=== PATIENT | female | born 1945 | race Caucasian/White ===

== ENCOUNTER 2021-12-18 02:49 | Inpatient (IN) ==
[2021-12-18] MEDS ORDERED: SODIUM CHLORIDE 0.9% 1,000 ML IV STA ×2 (03:08→04:51)
[2021-12-18 03:42] LABS: Basophils # 0.1 10*3/uL (0.0-0.2); Basophils % 0.3 % (0.0-0.8); Eosinophils # 0.1 10*3/uL (0.0-0.87); Eosinophils % 0.4 % (0.00-10.9); Hematocrit 47.2 VOL% (35.7-47.0); Immature Granulocytes % 0.8 %; Immature Granulocytes Absolute 0.19 #; Lymphocytes # 1.9 10*3/uL (1.4-4.0); Lymphocytes % 8.1 % (21.3-54.2); Mean Corpuscular HGB Conc 31.8 GM/DL (32-36); Mean Corpuscular Volume 101.7 FL (87-102); Monocytes % 4.4 % (1.7-12.7); Platelet Count 158 T/CUMM (130-400); Red Blood Count 4.64 MC/CUMM (3.8-5.5); Red Cell Distribution Width 13.2 % (9.3-17.3); White Blood Count 23.1 T/CUMM (4-12)
[2021-12-18 04:08] LABS: INR 0.9; PT Patient Result 10.6 SECS (10.5-12.0); Partial Thromboplastin Time 38.7 SECS (23.8-32.1)
[2021-12-18 04:15] LABS: Reactive Lymphocytes 1+
[2021-12-18 04:16] LABS: Ovalocytes 1+; Platelet Estimate Normal
[2021-12-18 06:28] LABS: Hyaline Casts,Urine 10 /LPF (0-3); Mucus,Urine Occasional /LPF (Occasional)
[2021-12-18 06:30] LABS: Glucose,Urine (UA) Negative (Negative); Ketones,Urine Negative (Negative); Nitrite,Urine Negative (Negative); Protein,Urine Negative (Negative); Urine Appearance Clear (Clear); Urine Color Yellow (Yellow); Urine Specific Gravity 1.015 (1.001-1.035); Urine pH 5.5 (4.5-8.0)
[2021-12-18 06:31] LABS: Bilirubin,Urine Negative (Negative); Blood, Urine Negative (Negative); Urine Urobilinogen 0.2 eU/dL (<2.0)
[2021-12-18] MEDS ORDERED: SODIUM CHLORIDE 0.9% 1,000 ML IV PRN (06:32)
[2021-12-18 07:09] LABS: Alanine Aminotransferase 25 U/L (13-56); Albumin 2.8 G/DL (3.4-5.0); Alkaline Phosphatase 166 U/L (45-117); Aspartate Amino Transferase 33 U/L (0-37); Bilirubin,Total < 0.39 MG/DL (0.20-1.00); Blood Urea Nitrogen 27 MG/DL (7-18); Calcium 8.4 MG/DL (8.5-10.1); Carbon Dioxide 22 MMOL/L (21-32); Chloride 108 MMOL/L (98-107); Estimated Glom Filtration Rate 32 ML/MIN; Glucose 118 MG/DL (74-106); Osmolality,Calculated 273.2 MOS/KG (273-304); Potassium 5.4 MMOL/L (3.5-5.1); Sodium 134 MMOL/L (136-145)
[2021-12-18 07:42] LABS: Hematocrit 37.8 VOL% (35.7-47.0); Hemoglobin 11.9 GM/DL (12.0-16.0)
[2021-12-18] MEDS ORDERED: ACETAMINOPHEN 325 MG TABLET PO PRN (08:45)
[2021-12-18] MEDS ORDERED: GLUCAGON 1 MG VIAL IM PRN (08:45)
[2021-12-18] MEDS ORDERED: DEXTROSE 10% 250 ML BAG IV PRN (09:02)
[2021-12-18] MEDS ORDERED: SERTRALINE 25 MG TABLET ONE (09:13)
[2021-12-18] MEDS: amLODIPine 10 MG TABLET PO SCH (09:26)
[2021-12-18] MEDS: SODIUM CHLORIDE 0.9% 1,000 ML IV SCH ×2 (09:26→17:45)
[2021-12-18] MEDS: busPIRone 15 MG TABLET PO SCH ×2 (09:26→20:22)
[2021-12-18] MEDS: METHOCARBAMOL 500 MG TABLET PO SCH ×3 (09:27→20:22)
[2021-12-18] MEDS: SERTRALINE 100 MG TABLET PO SCH (09:27)
[2021-12-18 09:47] LABS: Hematocrit 39.2 VOL% (35.7-47.0); Hemoglobin 12.7 GM/DL (12.0-16.0)
[2021-12-18] MEDS: PANTOPRAZOLE INJ 200 MG in SODIUM CHLORIDE 0.9% 250 ML IV SCH (10:07)
[2021-12-18] MEDS: buPROPion SR 150 MG TABLET PO SCH (10:07)
[2021-12-18] MEDS: CIPROFLOXACIN INJ 400 MG/200 ML PREMIX IV SCH ×2 (11:49→23:02)
[2021-12-18] MEDS: metroNIDAZOLE INJ 500 MG/100 ML PREMIX IV SCH (12:54)
[2021-12-18] MEDS: SODIUM ZIRCONIUM CYCLOSILICATE 10 GM PACK PO SCH ×2 (14:58→20:21)
[2021-12-18 15:26] LABS: Hematocrit 36.8 VOL% (35.7-47.0); Hemoglobin 11.9 GM/DL (12.0-16.0)
[2021-12-18] MEDS ORDERED: TEMAZEPAM 15 MG CAPSULE PO PRN (19:52)
[2021-12-18] MEDS: SIMVASTATIN 40 MG TABLET PO SCH (20:22)
[2021-12-18] MEDS ORDERED: rOPINIRole 1 MG TABLET PO SCH (21:00)
[2021-12-18 21:20] LABS: Hematocrit 34.5 VOL% (35.7-47.0); Hemoglobin 11.2 GM/DL (12.0-16.0)
[2021-12-19] MEDS: metroNIDAZOLE INJ 500 MG/100 ML PREMIX IV SCH ×2 (00:40→13:19)
[2021-12-19] MEDS: SODIUM CHLORIDE 0.9% 1,000 ML IV SCH ×4 (02:06→21:40)
[2021-12-19 05:39] LABS: Basophils % 0.2 % (0.0-0.8); Eosinophils % 0.1 % (0.00-10.9); Hematocrit 32.9 VOL% (35.7-47.0); Hemoglobin 10.7 GM/DL (12.0-16.0); Immature Granulocytes % 0.3 %; Immature Granulocytes Absolute 0.03 #; Lymphocytes # 0.7 10*3/uL (1.4-4.0); Lymphocytes % 7.1 % (21.3-54.2); Mean Corpuscular HGB Conc 32.5 GM/DL (32-36); Mean Corpuscular Volume 99.4 FL (87-102); Mean Platelet Volume 10.1 FL (9.6-12.0); Monocytes # 0.5 10*3/uL (0.11-0.8); Monocytes % 5.2 % (1.7-12.7); Neutrophils % 87.1 % (38.7-73.9); Red Cell Distribution Width 13.2 % (9.3-17.3)
[2021-12-19 05:47] LABS: Platelet Count 126 T/CUMM (130-400); Red Blood Count 3.31 MC/CUMM (3.8-5.5); White Blood Count 9.6 T/CUMM (4-12)
[2021-12-19 05:58] LABS: Calcium 8.2 MG/DL (8.5-10.1); Osmolality,Calculated 267.2 MOS/KG (273-304); Potassium 4.2 MMOL/L (3.5-5.1); Risk Ratio 3.07; Thyroid Stimulating Hormone 0.407 uIU/ml (0.358-3.74); VLDL Cholesterol 21.6 MG/DL
[2021-12-19] MEDS: LEVOTHYROXINE 50 MCG TABLET PO SCH (06:10)
[2021-12-19] MEDS ORDERED: lisinopriL 20 MG TABLET PO SCH (09:00)
[2021-12-19] MEDS: METHOCARBAMOL 500 MG TABLET PO SCH ×3 (09:43→20:28)
[2021-12-19] MEDS: buPROPion SR 150 MG TABLET PO SCH (09:43)
[2021-12-19] MEDS: SERTRALINE 100 MG TABLET PO SCH (09:43)
[2021-12-19] MEDS: busPIRone 15 MG TABLET PO SCH ×2 (09:43→20:27)
[2021-12-19] MEDS: amLODIPine 10 MG TABLET PO SCH (09:44)
[2021-12-19] MEDS: SODIUM ZIRCONIUM CYCLOSILICATE 10 GM PACK PO SCH ×3 (09:44→21:26)
[2021-12-19] MEDS: PANTOPRAZOLE INJ 200 MG in SODIUM CHLORIDE 0.9% 250 ML IV SCH (09:45)
[2021-12-19] MEDS: CIPROFLOXACIN INJ 400 MG/200 ML PREMIX IV SCH ×2 (12:06→22:44)
[2021-12-19] MEDS ORDERED: POLYETHYLENE GLYCOL POWDER 255 GM BOTTLE PO ONE (18:00)
[2021-12-19] MEDS: traMADol 50 MG TABLET PO PRN (18:41)
[2021-12-19] MEDS: rOPINIRole 1 MG TABLET PO SCH (18:45)
[2021-12-19] MEDS: ONDANSETRON 4 MG/2 ML VIAL IV PRN (20:27)
[2021-12-19] MEDS: SIMVASTATIN 40 MG TABLET PO SCH (20:28)
[2021-12-19] MEDS: DIVALPROEX ER 250 MG TABLET PO SCH (20:28)
[2021-12-19] MEDS ORDERED: DILTIAZEM 25 MG/5 ML VIAL IV ONE (23:09)
[2021-12-19] MEDS: DILTIAZEM INJ 100 MG in SODIUM CHLORIDE 0.9% 100 ML IV SCH (23:52)
[2021-12-20] MEDS: metroNIDAZOLE INJ 500 MG/100 ML PREMIX IV SCH ×2 (02:42→12:15)
[2021-12-20] MEDS: SODIUM CHLORIDE 0.9% 1,000 ML IV SCH ×3 (02:43→20:14)
[2021-12-20] MEDS ORDERED: METOPROLOL TARTRATE 5 MG/5 ML VIAL IV ONE (03:52)
[2021-12-20] MEDS: traMADol 50 MG TABLET PO PRN (04:27)
[2021-12-20] MEDS ORDERED: POLYETHYLENE GLYCOL POWDER 255 GM BOTTLE PO ONE (05:00)
[2021-12-20 05:06] LABS: Basophils % 0.2 % (0.0-0.8); Eosinophils % 0.4 % (0.00-10.9); Hematocrit 31.1 VOL% (35.7-47.0); Hemoglobin 10.3 GM/DL (12.0-16.0); Immature Granulocytes % 0.5 %; Immature Granulocytes Absolute 0.05 #; Lymphocytes # 0.7 10*3/uL (1.4-4.0); Lymphocytes % 7.4 % (21.3-54.2); Mean Corpuscular HGB Conc 33.1 GM/DL (32-36); Mean Platelet Volume 10.1 FL (9.6-12.0); Monocytes # 0.4 10*3/uL (0.11-0.8); Monocytes % 4.2 % (1.7-12.7); Neutrophils % 87.3 % (38.7-73.9); Platelet Count 123 T/CUMM (130-400); Red Blood Count 3.14 MC/CUMM (3.8-5.5); White Blood Count 10.1 T/CUMM (4-12)
[2021-12-20 05:34] LABS: Calcium 8.3 MG/DL (8.5-10.1); Osmolality,Calculated 275.5 MOS/KG (273-304); Potassium 3.2 MMOL/L (3.5-5.1)
[2021-12-20] MEDS: POTASSIUM CHLORIDE RIDER 10 MEQ/100 ML PREMIX IV SCH ×2 (06:46→10:25)
[2021-12-20] MEDS: LEVOTHYROXINE 50 MCG TABLET PO SCH (06:46)
[2021-12-20] MEDS: DILTIAZEM INJ 100 MG in SODIUM CHLORIDE 0.9% 100 ML IV SCH (08:30)
[2021-12-20] MEDS: busPIRone 15 MG TABLET PO SCH ×2 (10:05→20:01)
[2021-12-20] MEDS: amLODIPine 10 MG TABLET PO SCH (10:05)
[2021-12-20] MEDS: SERTRALINE 100 MG TABLET PO SCH (10:05)
[2021-12-20] MEDS: METHOCARBAMOL 500 MG TABLET PO SCH ×3 (10:05→20:01)
[2021-12-20] MEDS: DIVALPROEX ER 250 MG TABLET PO SCH ×2 (10:06→20:02)
[2021-12-20] MEDS: buPROPion SR 150 MG TABLET PO SCH (10:06)
[2021-12-20] MEDS ORDERED: DILTIAZEM 60 MG TABLET PO SCH ×2 (11:00→21:00)
[2021-12-20] MEDS: ASCORBIC ACID 500 MG TABLET PO SCH ×2 (11:53→20:01)
[2021-12-20] MEDS: CIPROFLOXACIN INJ 400 MG/200 ML PREMIX IV SCH ×2 (12:14→23:00)
[2021-12-20] MEDS: PANTOPRAZOLE INJ 200 MG in SODIUM CHLORIDE 0.9% 250 ML IV SCH (14:58)
[2021-12-20] MEDS: rOPINIRole 1 MG TABLET PO SCH (17:53)
[2021-12-20] MEDS: DILTIAZEM 90 MG TABLET PO SCH (21:00)
[2021-12-21] MEDS: metroNIDAZOLE INJ 500 MG/100 ML PREMIX IV SCH ×2 (01:24→12:31)
[2021-12-21] MEDS: DILTIAZEM INJ 100 MG in SODIUM CHLORIDE 0.9% 100 ML IV SCH ×3 (01:32→23:05)
[2021-12-21] MEDS: SODIUM CHLORIDE 0.9% 1,000 ML IV SCH ×2 (01:33→16:29)
[2021-12-21 04:49] LABS: Basophils % 0.3 % (0.0-0.8); Eosinophils # 0.2 10*3/uL (0.0-0.87); Eosinophils % 1.7 % (0.00-10.9); Hematocrit 31.3 VOL% (35.7-47.0); Immature Granulocytes % 0.7 %; Immature Granulocytes Absolute 0.07 #; Lymphocytes # 0.9 10*3/uL (1.4-4.0); Lymphocytes % 9.1 % (21.3-54.2); Mean Corpuscular HGB Conc 31.9 GM/DL (32-36); Mean Corpuscular Volume 99.1 FL (87-102); Mean Platelet Volume 9.9 FL (9.6-12.0); Monocytes # 0.5 10*3/uL (0.11-0.8); Monocytes % 4.5 % (1.7-12.7); Neutrophils % 83.7 % (38.7-73.9); Platelet Count 153 T/CUMM (130-400); Red Blood Count 3.16 MC/CUMM (3.8-5.5); Red Cell Distribution Width 13.2 % (9.3-17.3); White Blood Count 10.1 T/CUMM (4-12)
[2021-12-21 04:59] LABS: PT Patient Result 11.4 SECS (10.5-12.0)
[2021-12-21] MEDS ORDERED: POLYETHYLENE GLYCOL POWDER 255 GM BOTTLE PO ONE (05:00)
[2021-12-21 05:12] LABS: Calcium 8.5 MG/DL (8.5-10.1); Osmolality,Calculated 270.8 MOS/KG (273-304); Potassium 2.8 MMOL/L (3.5-5.1)
[2021-12-21] MEDS: LEVOTHYROXINE 50 MCG TABLET PO SCH (06:26)
[2021-12-21] MEDS: POTASSIUM CHLORIDE RIDER 10 MEQ/100 ML PREMIX IV PRN ×3 (06:54→09:01)
[2021-12-21 08:58] LABS: Arterial Base Excess iSTAT 1 MMOL/L (-2.5-2.5); Arterial Bicarbonate iSTAT 24.7 MMOL/L (20-26); Arterial O2 Saturation iSTAT 92 % (95-100); Arterial PCO2 iSTAT 35 MM HG (35-48); Arterial PO2 iSTAT 59 MM HG (80-95); Arterial Total CO2 iSTAT 26 MMO/L (23-27); Arterial pH iSTAT 7.456 (7.35-7.45)
[2021-12-21] MEDS ORDERED: LACTATED RINGERS 1,000 ML IV SCH (09:00)
[2021-12-21] MEDS: METHOCARBAMOL 500 MG TABLET PO SCH ×3 (10:13→20:58)
[2021-12-21] MEDS: ASCORBIC ACID 500 MG TABLET PO SCH ×2 (10:13→20:58)
[2021-12-21] MEDS: CYCLOBENZAPRINE 10 MG TABLET PO PRN (10:13)
[2021-12-21] MEDS: DILTIAZEM 90 MG TABLET PO SCH ×3 (10:14→20:58)
[2021-12-21] MEDS: buPROPion SR 150 MG TABLET PO SCH (10:14)
[2021-12-21] MEDS: SERTRALINE 100 MG TABLET PO SCH (10:14)
[2021-12-21] MEDS: busPIRone 15 MG TABLET PO SCH ×2 (10:14→20:58)
[2021-12-21] MEDS: amLODIPine 10 MG TABLET PO SCH (10:14)
[2021-12-21] MEDS: CIPROFLOXACIN INJ 400 MG/200 ML PREMIX IV SCH (10:16)
[2021-12-21] MEDS: DIVALPROEX ER 250 MG TABLET PO SCH ×2 (10:34→20:58)
[2021-12-21] MEDS: ALBUTEROL 0.63 MG/3 ML NEB RESP TX PRN (13:35)
[2021-12-21] MEDS: cefTRIAXone 1,000 MG in SYRINGE 1 EACH IV SCH (14:38)
[2021-12-21] MEDS: DOXYCYCLINE HYCLATE INJ 100 MG in SODIUM CHLORIDE 0.9% 100 ML IV SCH (17:02)
[2021-12-21] MEDS: rOPINIRole 1 MG TABLET PO SCH (19:39)
[2021-12-21] MEDS: AMIODARONE 200 MG TABLET PO SCH (20:58)
[2021-12-21] MEDS: PANTOPRAZOLE INJ 200 MG in SODIUM CHLORIDE 0.9% 250 ML IV SCH (21:52)
[2021-12-21] MEDS: metroNIDAZOLE 500 MG TABLET PO SCH (21:58)
[2021-12-22] MEDS: DOXYCYCLINE HYCLATE INJ 100 MG in SODIUM CHLORIDE 0.9% 100 ML IV SCH ×2 (02:32→15:10)
[2021-12-22 04:59] LABS: Basophils % 0.3 % (0.0-0.8); Eosinophils # 0.1 10*3/uL (0.0-0.87); Eosinophils % 0.9 % (0.00-10.9); Hematocrit 30.9 VOL% (35.7-47.0); Hemoglobin 9.9 GM/DL (12.0-16.0); Immature Granulocytes % 0.9 %; Immature Granulocytes Absolute 0.14 #; Lymphocytes # 1.2 10*3/uL (1.4-4.0); Lymphocytes % 7.6 % (21.3-54.2); Mean Corpuscular Volume 99.4 FL (87-102); Mean Platelet Volume 9.3 FL (9.6-12.0); Monocytes # 0.9 10*3/uL (0.11-0.8); Monocytes % 5.9 % (1.7-12.7); Neutrophils % 84.4 % (38.7-73.9); Platelet Count 193 T/CUMM (130-400); Red Blood Count 3.11 MC/CUMM (3.8-5.5); Red Cell Distribution Width 13.4 % (9.3-17.3); White Blood Count 15.5 T/CUMM (4-12)
[2021-12-22 05:14] LABS: Calcium 8.4 MG/DL (8.5-10.1); Osmolality,Calculated 272.8 MOS/KG (273-304); Potassium 2.9 MMOL/L (3.5-5.1)
[2021-12-22] MEDS: LEVOTHYROXINE 50 MCG TABLET PO SCH (05:56)
[2021-12-22] MEDS: metroNIDAZOLE 500 MG TABLET PO SCH ×3 (05:56→21:01)
[2021-12-22] MEDS: POTASSIUM CHLORIDE RIDER 10 MEQ/100 ML PREMIX IV PRN ×5 (06:34→13:07)
[2021-12-22] MEDS: buPROPion SR 150 MG TABLET PO SCH (08:55)
[2021-12-22] MEDS: DILTIAZEM 90 MG TABLET PO SCH (08:56)
[2021-12-22] MEDS: busPIRone 15 MG TABLET PO SCH ×2 (08:56→21:01)
[2021-12-22] MEDS: SERTRALINE 100 MG TABLET PO SCH (08:57)
[2021-12-22] MEDS: DIVALPROEX ER 250 MG TABLET PO SCH ×2 (08:57→21:01)
[2021-12-22] MEDS: amLODIPine 10 MG TABLET PO SCH (08:58)
[2021-12-22] MEDS: ASCORBIC ACID 500 MG TABLET PO SCH ×2 (08:58→21:01)
[2021-12-22] MEDS: AMIODARONE 200 MG TABLET PO SCH ×2 (08:59→21:01)
[2021-12-22] MEDS: METHOCARBAMOL 500 MG TABLET PO SCH ×3 (09:00→21:01)
[2021-12-22] MEDS ORDERED: LACTATED RINGERS 1,000 ML IV SCH (09:00)
[2021-12-22] MEDS ORDERED: METOPROLOL SUCCINATE XL 50 MG TABLET PO ONE (12:00)
[2021-12-22] MEDS: cefTRIAXone 1,000 MG in SODIUM CHLORIDE 0.9% 100 ML IV SCH (14:37)
[2021-12-22] MEDS: cefTRIAXone 1,000 MG in SYRINGE 1 EACH IV SCH (14:42)
[2021-12-22] MEDS: PANTOPRAZOLE INJ 200 MG in SODIUM CHLORIDE 0.9% 250 ML IV SCH (14:42)
[2021-12-22 16:03] LABS: Calcium 8.7 MG/DL (8.5-10.1); Osmolality,Calculated 268.1 MOS/KG (273-304); Potassium 3.6 MMOL/L (3.5-5.1)
[2021-12-22] MEDS: FUROSEMIDE 40 MG TABLET PO SCH (16:11)
[2021-12-22] MEDS: rOPINIRole 1 MG TABLET PO SCH (18:26)
[2021-12-23] MEDS: DILTIAZEM INJ 100 MG in SODIUM CHLORIDE 0.9% 100 ML IV SCH ×2 (02:33→06:00)
[2021-12-23] MEDS: DOXYCYCLINE HYCLATE INJ 100 MG in SODIUM CHLORIDE 0.9% 100 ML IV SCH ×2 (03:11→14:41)
[2021-12-23] MEDS: LEVOTHYROXINE 50 MCG TABLET PO SCH (06:00)
[2021-12-23] MEDS: metroNIDAZOLE 500 MG TABLET PO SCH ×2 (06:00→13:50)
[2021-12-23 06:20] LABS: Basophils % 0.1 % (0.0-0.8); Eosinophils # 0.1 10*3/uL (0.0-0.87); Eosinophils % 0.6 % (0.00-10.9); Hematocrit 30.2 VOL% (35.7-47.0); Hemoglobin 9.9 GM/DL (12.0-16.0); Immature Granulocytes % 1.4 %; Immature Granulocytes Absolute 0.22 #; Lymphocytes # 1.2 10*3/uL (1.4-4.0); Lymphocytes % 7.8 % (21.3-54.2); Mean Corpuscular HGB Conc 32.8 GM/DL (32-36); Mean Corpuscular Volume 98.1 FL (87-102); Mean Platelet Volume 9.5 FL (9.6-12.0); Monocytes # 0.8 10*3/uL (0.11-0.8); Monocytes % 4.9 % (1.7-12.7); NRBC # 0.03 10*3/uL; Neutrophils % 85.2 % (38.7-73.9); Platelet Count 193 T/CUMM (130-400); Red Blood Count 3.08 MC/CUMM (3.8-5.5); Red Cell Distribution Width 13.6 % (9.3-17.3); White Blood Count 15.6 T/CUMM (4-12)
[2021-12-23 06:46] LABS: Albumin 2.2 G/DL (3.4-5.0); Bilirubin,Direct 0.1 MG/DL (0.0-0.20); Bilirubin,Indirect 0.7 MG/DL (0.0-1.0); Bilirubin,Total 0.8 MG/DL (0.20-1.00); Total Protein 6.3 G/DL (6.4-8.2)
[2021-12-23 07:03] LABS: Calcium 8.7 MG/DL (8.5-10.1)
[2021-12-23] MEDS ORDERED: METOPROLOL SUCCINATE XL 100 MG TABLET PO SCH (09:00)
[2021-12-23] MEDS: POTASSIUM CHLORIDE 10 MEQ TABLET PO SCH (09:17)
[2021-12-23] MEDS: METHOCARBAMOL 500 MG TABLET PO SCH ×3 (09:17→20:33)
[2021-12-23] MEDS: FUROSEMIDE 40 MG TABLET PO SCH (09:18)
[2021-12-23] MEDS: busPIRone 15 MG TABLET PO SCH ×2 (09:18→20:32)
[2021-12-23] MEDS: amLODIPine 10 MG TABLET PO SCH (09:18)
[2021-12-23] MEDS: DIVALPROEX ER 250 MG TABLET PO SCH ×2 (09:18→20:32)
[2021-12-23] MEDS: SERTRALINE 100 MG TABLET PO SCH (09:18)
[2021-12-23] MEDS: ASCORBIC ACID 500 MG TABLET PO SCH ×2 (09:18→20:33)
[2021-12-23] MEDS: buPROPion SR 150 MG TABLET PO SCH (09:18)
[2021-12-23] MEDS: AMIODARONE 200 MG TABLET PO SCH ×2 (09:19→20:32)
[2021-12-23] MEDS ORDERED: POTASSIUM CHLORIDE 20 MEQ TABLET PO ONE (10:30)
[2021-12-23] MEDS ORDERED: DILTIAZEM 60 MG TABLET PO SCH (10:30)
[2021-12-23] MEDS: DILTIAZEM 30 MG TABLET PO SCH ×3 (10:48→17:41)
[2021-12-23] MEDS: PANTOPRAZOLE INJ 200 MG in SODIUM CHLORIDE 0.9% 250 ML IV SCH (10:49)
[2021-12-23] MEDS ORDERED: TUBERCULIN SKIN TEST 0.1 ML SYRINGE INTRADERM ONE (11:00)
[2021-12-23] MEDS: SPIRONOLACTONE 25 MG TABLET PO SCH (13:50)
[2021-12-23] MEDS: cefTRIAXone 1,000 MG in SODIUM CHLORIDE 0.9% 100 ML IV SCH (13:50)
[2021-12-23] MEDS: rOPINIRole 1 MG TABLET PO SCH (17:40)
[2021-12-23] MEDS ORDERED: MORPHINE 2 MG/1 ML SYRINGE IV PRN (18:21)
[2021-12-23] MEDS: METOPROLOL SUCCINATE XL 100 MG TABLET PO SCH (20:32)
[2021-12-23] MEDS: TEMAZEPAM 15 MG CAPSULE PO SCH (20:32)
[2021-12-23] MEDS: GABAPENTIN 300 MG CAPSULE PO SCH (20:33)
[2021-12-24] MEDS: metroNIDAZOLE 500 MG TABLET PO SCH ×4 (00:02→21:29)
[2021-12-24] MEDS: DILTIAZEM 30 MG TABLET PO SCH ×4 (00:02→20:45)
[2021-12-24] MEDS: DOXYCYCLINE HYCLATE INJ 100 MG in SODIUM CHLORIDE 0.9% 100 ML IV SCH ×2 (02:50→13:06)
[2021-12-24 04:39] LABS: Basophils % 0.3 % (0.0-0.8); Eosinophils # 0.1 10*3/uL (0.0-0.87); Eosinophils % 0.6 % (0.00-10.9); Immature Granulocytes % 1.9 %; Immature Granulocytes Absolute 0.26 #; Lymphocytes # 0.8 10*3/uL (1.4-4.0); Mean Corpuscular HGB Conc 33.3 GM/DL (32-36); Mean Corpuscular Volume 96.2 FL (87-102); Mean Platelet Volume 9.1 FL (9.6-12.0); Monocytes # 0.6 10*3/uL (0.11-0.8); Monocytes % 4.6 % (1.7-12.7); NRBC # 0.03 10*3/uL; Neutrophils % 86.6 % (38.7-73.9); Platelet Count 238 T/CUMM (130-400); Red Blood Count 3.12 MC/CUMM (3.8-5.5); White Blood Count 13.4 T/CUMM (4-12)
[2021-12-24 05:10] LABS: Calcium 8.7 MG/DL (8.5-10.1); Potassium 3.4 MMOL/L (3.5-5.1)
[2021-12-24] MEDS: LEVOTHYROXINE 50 MCG TABLET PO SCH (05:51)
[2021-12-24] MEDS: SERTRALINE 100 MG TABLET PO SCH (08:37)
[2021-12-24] MEDS: DIVALPROEX ER 250 MG TABLET PO SCH ×2 (08:37→20:46)
[2021-12-24] MEDS: SPIRONOLACTONE 25 MG TABLET PO SCH (08:37)
[2021-12-24] MEDS: buPROPion SR 150 MG TABLET PO SCH (08:37)
[2021-12-24] MEDS: POTASSIUM CHLORIDE 10 MEQ TABLET PO SCH (08:38)
[2021-12-24] MEDS: METHOCARBAMOL 500 MG TABLET PO SCH ×3 (08:38→20:46)
[2021-12-24] MEDS: busPIRone 15 MG TABLET PO SCH ×2 (08:38→20:45)
[2021-12-24] MEDS: AMIODARONE 200 MG TABLET PO SCH ×2 (08:38→20:46)
[2021-12-24] MEDS: ASCORBIC ACID 500 MG TABLET PO SCH ×2 (08:38→20:46)
[2021-12-24] MEDS: METOPROLOL SUCCINATE XL 100 MG TABLET PO SCH ×2 (08:38→20:46)
[2021-12-24] MEDS: GABAPENTIN 300 MG CAPSULE PO SCH ×3 (08:38→20:47)
[2021-12-24] MEDS: ONDANSETRON 4 MG/2 ML VIAL IV PRN (08:39)
[2021-12-24] MEDS ORDERED: DILTIAZEM 30 MG TABLET PO SCH (09:00)
[2021-12-24] MEDS: PANTOPRAZOLE INJ 200 MG in SODIUM CHLORIDE 0.9% 250 ML IV SCH (10:33)
[2021-12-24] MEDS ORDERED: SPIRONOLACTONE 25 MG TABLET PO ONE (12:30)
[2021-12-24] MEDS: cefTRIAXone 1,000 MG in SODIUM CHLORIDE 0.9% 100 ML IV SCH (14:56)
[2021-12-24] MEDS: rOPINIRole 1 MG TABLET PO SCH (18:15)
[2021-12-24] MEDS: CYCLOBENZAPRINE 10 MG TABLET PO PRN (18:25)
[2021-12-24] MEDS: TEMAZEPAM 15 MG CAPSULE PO SCH (20:45)
[2021-12-24] MEDS: PANTOPRAZOLE 40 MG TABLET PO SCH (20:46)
[2021-12-25] MEDS: DOXYCYCLINE HYCLATE INJ 100 MG in SODIUM CHLORIDE 0.9% 100 ML IV SCH ×2 (02:38→16:24)
[2021-12-25 05:21] LABS: Basophils % 0.4 % (0.0-0.8); Eosinophils # 0.3 10*3/uL (0.0-0.87); Eosinophils % 2.4 % (0.00-10.9); Hematocrit 30.5 VOL% (35.7-47.0); Hemoglobin 9.9 GM/DL (12.0-16.0); Immature Granulocytes % 2.4 %; Immature Granulocytes Absolute 0.25 #; Lymphocytes # 1.2 10*3/uL (1.4-4.0); Lymphocytes % 11.3 % (21.3-54.2); Mean Corpuscular HGB Conc 32.5 GM/DL (32-36); Mean Corpuscular Volume 98.1 FL (87-102); Mean Platelet Volume 9.1 FL (9.6-12.0); Monocytes # 0.6 10*3/uL (0.11-0.8); Neutrophils % 77.5 % (38.7-73.9); Platelet Count 312 T/CUMM (130-400); Red Blood Count 3.11 MC/CUMM (3.8-5.5); Red Cell Distribution Width 14.3 % (9.3-17.3); White Blood Count 10.6 T/CUMM (4-12)
[2021-12-25 05:47] LABS: Calcium 8.9 MG/DL (8.5-10.1); Osmolality,Calculated 275.7 MOS/KG (273-304); Potassium 3.2 MMOL/L (3.5-5.1)
[2021-12-25] MEDS: LEVOTHYROXINE 50 MCG TABLET PO SCH (05:52)
[2021-12-25] MEDS: metroNIDAZOLE 500 MG TABLET PO SCH ×3 (05:52→21:32)
[2021-12-25] MEDS: busPIRone 15 MG TABLET PO SCH ×2 (08:23→21:32)
[2021-12-25] MEDS: DIVALPROEX ER 250 MG TABLET PO SCH ×2 (08:23→21:32)
[2021-12-25] MEDS: buPROPion SR 150 MG TABLET PO SCH (08:23)
[2021-12-25] MEDS: DILTIAZEM 30 MG TABLET PO SCH ×3 (08:24→21:31)
[2021-12-25] MEDS: AMIODARONE 200 MG TABLET PO SCH ×2 (08:24→21:32)
[2021-12-25] MEDS: GABAPENTIN 300 MG CAPSULE PO SCH ×3 (08:24→21:32)
[2021-12-25] MEDS: METOPROLOL SUCCINATE XL 100 MG TABLET PO SCH ×2 (08:24→21:32)
[2021-12-25] MEDS: ASCORBIC ACID 500 MG TABLET PO SCH ×2 (08:24→21:32)
[2021-12-25] MEDS: SPIRONOLACTONE 50 MG TABLET PO SCH (08:25)
[2021-12-25] MEDS: POTASSIUM CHLORIDE 10 MEQ TABLET PO SCH (08:25)
[2021-12-25] MEDS: METHOCARBAMOL 500 MG TABLET PO SCH ×3 (08:25→21:32)
[2021-12-25] MEDS: PANTOPRAZOLE 40 MG TABLET PO SCH (08:25)
[2021-12-25] MEDS: SERTRALINE 100 MG TABLET PO SCH (08:25)
[2021-12-25] MEDS ORDERED: DILTIAZEM CD 120 MG CAPSULE PO SCH (09:00)
[2021-12-25] MEDS: ALBUTEROL 0.63 MG/3 ML NEB RESP TX PRN (11:50)
[2021-12-25] MEDS: POTASSIUM CHLORIDE 20 MEQ TABLET PO SCH (14:29)
[2021-12-25] MEDS: cefTRIAXone 1,000 MG in SODIUM CHLORIDE 0.9% 100 ML IV SCH (14:35)
[2021-12-25] MEDS: rOPINIRole 1 MG TABLET PO SCH (18:09)
[2021-12-25] MEDS: PANTOPRAZOLE 40 MG VIAL IV SCH (21:37)
[2021-12-25] MEDS: TEMAZEPAM 15 MG CAPSULE PO SCH (22:49)
[2021-12-26] MEDS: DOXYCYCLINE HYCLATE INJ 100 MG in SODIUM CHLORIDE 0.9% 100 ML IV SCH ×2 (01:34→13:14)
[2021-12-26] MEDS: LEVOTHYROXINE 50 MCG TABLET PO SCH (06:01)
[2021-12-26] MEDS: metroNIDAZOLE 500 MG TABLET PO SCH ×3 (06:01→21:38)
[2021-12-26] MEDS: PANTOPRAZOLE 40 MG VIAL IV SCH ×2 (08:04→20:58)
[2021-12-26] MEDS: busPIRone 15 MG TABLET PO SCH ×2 (08:04→20:55)
[2021-12-26] MEDS: buPROPion SR 150 MG TABLET PO SCH (08:04)
[2021-12-26] MEDS: DIVALPROEX ER 250 MG TABLET PO SCH ×2 (08:04→20:55)
[2021-12-26] MEDS: ASCORBIC ACID 500 MG TABLET PO SCH ×2 (08:05→20:55)
[2021-12-26] MEDS: SERTRALINE 100 MG TABLET PO SCH (08:05)
[2021-12-26] MEDS: GABAPENTIN 300 MG CAPSULE PO SCH ×3 (08:05→20:55)
[2021-12-26] MEDS: DILTIAZEM 30 MG TABLET PO SCH ×3 (08:05→20:55)
[2021-12-26] MEDS: AMIODARONE 200 MG TABLET PO SCH ×2 (08:05→20:54)
[2021-12-26] MEDS: METOPROLOL SUCCINATE XL 100 MG TABLET PO SCH ×2 (08:06→20:55)
[2021-12-26] MEDS: METHOCARBAMOL 500 MG TABLET PO SCH ×3 (08:06→20:54)
[2021-12-26] MEDS: SPIRONOLACTONE 50 MG TABLET PO SCH (08:06)
[2021-12-26] MEDS: POTASSIUM CHLORIDE 20 MEQ TABLET PO SCH (08:06)
[2021-12-26] MEDS ORDERED: ALUMINUM/MAGNES/SIMETH MAX STR 30 ML UDCUP PO PRN (09:22)
[2021-12-26] MEDS: cefTRIAXone 1,000 MG in SODIUM CHLORIDE 0.9% 100 ML IV SCH (14:58)
[2021-12-26] MEDS: rOPINIRole 1 MG TABLET PO SCH (17:05)
[2021-12-26] MEDS: CLORAZEPATE 3.75 MG TABLET PO PRN (20:54)
[2021-12-26] MEDS: TEMAZEPAM 15 MG CAPSULE PO SCH (21:00)
[2021-12-27] MEDS: DOXYCYCLINE HYCLATE INJ 100 MG in SODIUM CHLORIDE 0.9% 100 ML IV SCH ×2 (02:32→14:59)
[2021-12-27] MEDS: LEVOTHYROXINE 50 MCG TABLET PO SCH (05:52)
[2021-12-27] MEDS: metroNIDAZOLE 500 MG TABLET PO SCH ×3 (05:52→21:33)
[2021-12-27] MEDS: PANTOPRAZOLE 40 MG VIAL IV SCH ×2 (09:23→21:34)
[2021-12-27] MEDS: GABAPENTIN 300 MG CAPSULE PO SCH ×3 (09:26→21:34)
[2021-12-27] MEDS: DIVALPROEX ER 250 MG TABLET PO SCH ×2 (09:26→21:33)
[2021-12-27] MEDS: METHOCARBAMOL 500 MG TABLET PO SCH ×3 (09:27→21:34)
[2021-12-27] MEDS: AMIODARONE 200 MG TABLET PO SCH ×2 (09:27→21:33)
[2021-12-27] MEDS: busPIRone 15 MG TABLET PO SCH ×2 (09:27→21:34)
[2021-12-27] MEDS: ASCORBIC ACID 500 MG TABLET PO SCH ×2 (09:27→21:33)
[2021-12-27] MEDS: METOPROLOL SUCCINATE XL 100 MG TABLET PO SCH ×2 (09:27→21:34)
[2021-12-27] MEDS: CLORAZEPATE 3.75 MG TABLET PO PRN (09:27)
[2021-12-27] MEDS: POTASSIUM CHLORIDE 20 MEQ TABLET PO SCH (09:27)
[2021-12-27] MEDS: buPROPion SR 150 MG TABLET PO SCH (09:27)
[2021-12-27] MEDS: SERTRALINE 100 MG TABLET PO SCH (09:28)
[2021-12-27] MEDS: SPIRONOLACTONE 50 MG TABLET PO SCH (09:28)
[2021-12-27] MEDS: DILTIAZEM 30 MG TABLET PO SCH (09:28)
[2021-12-27] MEDS: DESITIN 4OZ/NYSTATIN 15 GRAM MIXTURE PASTE TOP SCH ×2 (14:58→21:35)
[2021-12-27] MEDS: cefTRIAXone 1,000 MG in SODIUM CHLORIDE 0.9% 100 ML IV SCH (14:58)
[2021-12-27] MEDS: rOPINIRole 1 MG TABLET PO SCH (18:13)
[2021-12-27] MEDS: TEMAZEPAM 15 MG CAPSULE PO SCH (21:34)
[2021-12-28] MEDS: DOXYCYCLINE HYCLATE INJ 100 MG in SODIUM CHLORIDE 0.9% 100 ML IV SCH (01:51)
[2021-12-28] MEDS: LEVOTHYROXINE 50 MCG TABLET PO SCH (05:32)
[2021-12-28] MEDS: metroNIDAZOLE 500 MG TABLET PO SCH (05:32)
[2021-12-28] MEDS ORDERED: AMIODARONE 200 MG TABLET PO SCH (09:00)
[2021-12-28] MEDS ORDERED: DILTIAZEM CD 120 MG CAPSULE PO SCH (09:00)
[2021-12-28] MEDS: METOPROLOL SUCCINATE XL 100 MG TABLET PO SCH (09:00)
[2021-12-28] MEDS: GABAPENTIN 300 MG CAPSULE PO SCH (09:01)
[2021-12-28] MEDS: SERTRALINE 100 MG TABLET PO SCH (09:01)
[2021-12-28] MEDS: AMIODARONE 200 MG TABLET PO SCH (09:02)
[2021-12-28] MEDS: busPIRone 15 MG TABLET PO SCH (09:02)
[2021-12-28] MEDS: DIVALPROEX ER 250 MG TABLET PO SCH (09:02)
[2021-12-28] MEDS: SPIRONOLACTONE 50 MG TABLET PO SCH (09:02)
[2021-12-28] MEDS: POTASSIUM CHLORIDE 20 MEQ TABLET PO SCH (09:02)
[2021-12-28] MEDS: ASCORBIC ACID 500 MG TABLET PO SCH (09:02)
[2021-12-28] MEDS: buPROPion SR 150 MG TABLET PO SCH (09:03)
[2021-12-28] MEDS: METHOCARBAMOL 500 MG TABLET PO SCH (09:03)
[2021-12-28] MEDS: DESITIN 4OZ/NYSTATIN 15 GRAM MIXTURE PASTE TOP SCH (09:08)
[2021-12-28] MEDS: PANTOPRAZOLE 40 MG VIAL IV SCH (09:08)
[2021-12-28 12:18] VITALS: BP 151/63
== END 2021-12-28 13:08 | DRG 391 ==
LOC: EDUNIT# → EDBD → N.ED 02:49 → N.EDINP 08:47 → SUATTDRO 08:47 → N.EDINP 10:50 → N.TELEN 11:12
PROVIDERS: ADMIT Phlebology; ATTEND Emergency Medicine